=== PATIENT | male | born 2000 | race Caucasian/White ===

== ENCOUNTER 2022-11-08 20:06 | Emergency (ER) | payer OTHER, SELFPAY ==
[2022-11-08 20:22] VITALS: BP 169/96; PULSE 98; RESP 16; TEMP 37.4; O2SAT 98
[2022-11-08 20:24] VITALS: BP 169/96; PULSE 98; RESP 16; TEMP 37.4; O2SAT 98
--- NOTE | 2022-11-08 20:24 | ED.EAR ---
HPI - Ear Problem General Chief complaint: Ear Stated complaint: Left Ear Irritation Time Seen by Provider: 11/08/22 20:09 Source: patient Mode of arrival: ambulatory Limitations: no limitations History of Present Illness HPI Narrative: Matthew is a 22-year-old male patient presenting to the clinic today with complaints of left ear pain/blood coming from the left ear. Reports that he has had ear pain for the past day or so. It tried to clean his ear today and noticed blood in the ear canal. States he is having some hearing loss in the left ear. Related Data Allergies Allergy/AdvReac Type Severity Reaction Status Date / Time Penicillins Allergy Intermediate Hives Verified 11/08/22 20:23 Review of Systems Review of Systems: Pertinent positives per HPI. Patient denies any fever, chills, rash, headache, visual changes, dizziness, cough, runny nose, sore throat, shortness of breath, chest pain, palpitations, nausea, vomiting, diarrhea, constipation, abdominal pain, or any urinary issues. PMFSH Comments At the time of my signature, I reviewed and agree with the nursing past medical, surgical, social, and family history. There is no relevant family history pertinent to the patient complaint. Exam Narrative: General: Well-developed, well nourished, in no apparent distress Head: Normocephalic, atraumatic Eyes: Pupils equally round and reactive to light bilaterally, EOM intact, sclera and conjunctive clear, no discharge, lids normal Ears: Right tMs intact and clear, right ear canal clear, left TM ruptured with purulent bloody discharge in the ear canal, right grossly hearing normal, left ear hearing diminished Nose: Nares patent, no discharge, no inflammation, no sinus tenderness. Mouth: Oropharynx without lesions or masses, good dentition, MMM. Neck: Supple, trachea midline, no enlargement of anterior or posterior cervical nodes, no thyroid masses or goiter palpable. Cardio: Regular rate and rhythm, s1 and s2 normal, no murmur appreciated. Resp: Clear to auscultation bilaterally anteriorly and posteriorly, no rhonchi, rales, wheezing or rubs Course Course Emergency Course: Portions of this record may have been created with voice recognition software. Level of Care: Express Care Visit Vital Signs Vital signs: Vital Signs Temperature 37.4 C 11/08/22 20:22 Pulse Rate 98 11/08/22 20:22 Respiratory Rate 16 11/08/22 20:22 Blood Pressure 169/96 H 11/08/22 20:22 Pulse Oximetry 98 11/08/22 20:22 Oxygen Delivery Room Air 11/08/22 20:22 Temperature 37.4 C 11/08/22 20:24 Pulse Rate 98 11/08/22 20:24 Respiratory Rate 16 11/08/22 20:24 Blood Pressure 169/96 H 11/08/22 20:24 Pulse Oximetry 98 11/08/22 20:24 Oxygen Delivery Room Air 11/08/22 20:24 Vital signs reviewed Medical Decision Making MDM Narrative Medical decision making narrative: At the time of visit patient is resting comfortably on exam table. I suspect patient has otitis media with spontaneous rupture. Prescriptions for ofloxacin ear drops and azithromycin were sent to the pharmacy. Referral to for Dr. [facility] was given. Supportive measures were discussed with the patient and he voiced understanding discharge instructions agrees to treatment plan. Differential Diagnosis Differential Diagnosis: Otitis media, otitis externa, eustachian tube dysfunction, otorrhea, spontaneous rupture of the tympanic membrane, upper respiratory infection Vital Signs Vital Signs: Vital Signs Temperature 37.4 C 11/08/22 20:22 Pulse Rate 98 11/08/22 20:22 Respiratory Rate 16 11/08/22 20:22 Blood Pressure 169/96 H 11/08/22 20:22 Pulse Oximetry 98 11/08/22 20:22 Oxygen Delivery Room Air 11/08/22 20:22 Temperature 37.4 C 11/08/22 20:24 Pulse Rate 98 11/08/22 20:24 Respiratory Rate 16 11/08/22 20:24 Blood Pressure 169/96 H 11/08/22 20:24 Pulse Oximetry 98 11/08/22 20:24 Oxygen Delivery Ro
== END 2022-11-08 20:34 | disposition home or self-care (01) ==
PROVIDERS: Emergency Provider Nurse Practitioner Family
DX: H66.012 Acute suppurative otitis media with spontaneous rupture of ear drum, left ear (principal)
CPT/HCPCS: 99203; G0463